=== PATIENT | female | born 1965 | race Caucasian/White ===

== ENCOUNTER 2024-03-13 09:53 | Day surgery (SDC) | payer OTHER ==
[2024-03-12 09:54] VITALS: BMI 30.4
[2024-03-13 10:35] LABS: Anion Gap 11 mmol/L (10-20); BUN (Urea Nitrogen) 12 mg/dL (9.8-20.1); Calc. Creatinine Clearance 99 mL/min (70-130); Calcium 9.9 mg/dL (7.8-10.44); Carbon Dioxide 29 mmol/L (22-29); Chloride 104 mmol/L (98-107); Estimated GFR 83; Glucose 95 mg/dL (70-105); Potassium 4.3 mmol/L (3.5-5.1); Sodium 140 mmol/L (136-145)
[2024-03-13] MEDS ORDERED: CEFAZOLIN 2 GM VIAL ONE (11:29)
[2024-03-13] MEDS ORDERED: Bupivacaine PF 0.5% 30 ML VIAL ONE (11:29)
[2024-03-13] MEDS ORDERED: PROPOFOL 20 ML ONE (11:47)
[2024-03-13] MEDS ORDERED: fentaNYL 50 mcg/mL 1 mL Vial ONE ×2 (11:48→13:22)
[2024-03-13] MEDS ORDERED: Lidocaine 1% PF 5 ML VIAL ONE (11:52)
[2024-03-13] MEDS ORDERED: PHENYLEPHRINE-NS 100 MCG/ML 10 ML SYRINGE ONE (12:17)
[2024-03-13] MEDS ORDERED: ePHEDrine Sulfate 50 MG/10 ML VIAL ONE (12:41)
[2024-03-13] MEDS ORDERED: Dexamethasone 4 mg/ml Vial ONE (13:15)
[2024-03-13] MEDS ORDERED: Ondansetron PF 4 MG/2 ML Vial ONE (13:15)
[2024-03-13] MEDS ORDERED: Promethazine HCl 25 MG/ML VIAL ONE (13:57)
[2024-03-13] MEDS ORDERED: HYDROcodone/Acetaminophen 5/325 mg Tablet ONE (14:31)
== END 2024-03-13 14:55 | disposition home or self-care (01) ==
LOC: CSHSDC 09:53
PROVIDERS: ATTEND Podiatrist Foot & Ankle Surgery
PROC: 0SGM07Z Fusion of Right Metatarsal-Phalangeal Joint with Autologous Tissue Substitute, Open Approach (ICD-10-PCS; principal; 2024-03-13)
DX: M20.21 Hallux rigidus, right foot (principal)
CPT/HCPCS: 36415; 80048; 93005; 93010; C1713; J0665; J1100; J2405; J2550; J2704; J3010